=== PATIENT | male | born 2005 | race Caucasian/White ===

== ENCOUNTER 2024-10-06 10:43 | Emergency (ER) | payer BC, SELFPAY ==
[2024-10-06 11:19] VITALS: BP 130/75; PULSE 94; RESP 17; TEMP 37.1; O2SAT 97
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
--- NOTE | 2024-10-06 13:39 | PC.NURSE ---
NA x2 1330, 1339 for discharge
--- NOTE | 2024-10-06 14:37 | PC.NURSE ---
NAx3 @1400 for discharge.
== END 2024-10-06 14:38 | disposition left against medical advice (07) ==
PROVIDERS: Emergency Provider Emergency Medicine
DX: S13.4XXA Sprain of ligaments of cervical spine, initial encounter (principal); V49.9XXA Car occupant (driver) (passenger) injured in unspecified traffic accident, initial encounter; Z53.29 Procedure and treatment not carried out because of patient's decision for other reasons
CPT/HCPCS: 70450; 72125; 99283